=== PATIENT | female | born 1955 ===

== ENCOUNTER 2017-10-15 13:55 | Emergency (ER) | payer OTHER ==
[2017-10-15 13:59] VITALS: TEMP 36.7
[2017-10-15] MEDS ORDERED: OPTIRAY 320 IV PRN (14:30)
[2017-10-15 14:40] LABS: BASO % 0.5 %; BASO ABS # 0.03 K/uL (0-0.2); EOS % 10.5 %; EOS ABS # 0.64 K/uL (0-0.5); HEMATOCRIT 37.5 % (37-47); HEMOGLOBIN 12.9 g/dL (12.0-16.0); IG# 0.02 K/uL (0.00-0.02); LYMPH % 30.1 %; LYMPH ABS # 1.83 K/uL (1.2-3.4); MEAN CELL VOLUME 90.1 fL (80-100); MEAN CORPUSCULAR HGB CONC 34.4 g/dl (32-36); MEAN PLATELET VOLUME 9.4 fL (7.4-10.4); MONO % 3.6 %; MONO ABS # 0.22 K/uL (0.11-0.59); NEUT ABS # 3.33 K/uL (1.4-6.5); PLATELET COUNT 239 K/uL (130-400); RED CELL DISTRIBUTION WIDTH CV 13.1 % (11.5-14.5); RED CELL DISTRIBUTION WIDTH SD 42.6 fL (36.4-46.3); WHITE BLOOD COUNT 6.07 K/uL (4.8-10.8)
[2017-10-15 14:59] LABS: ALBUMIN 3.8 gm/dl (3.4-5.0); ALKALINE PHOSPHATASE 67 U/L (45-117); ALT/SGPT 31 U/L (12-78); AST/SGOT 22 U/L (15-37); BLOOD UREA NITROGEN 12 mg/dl (7-18); CALCIUM 8.9 mg/dl (8.5-10.1); CARBON DIOXIDE 29 mmol/L (21-32); CREATININE 0.82 mg/dl (0.60-1.20); GLUCOSE 144 mg/dl (70-99); LIPASE 150 U/L (73-393); SODIUM 140 mmol/L (136-145); TOTAL PROTEIN 7.9 gm/dl (6.4-8.2)
--- NOTE | 2017-10-15 15:05 | EMERGENCY ROOM VISIT NOTE ---
History Report prepared by Chavze: Nasir Mccarthy Under the Supervision of: Dr. Alli Kessler D.O. First contact with patient: 14:02 Chief Complaint: FALL Stated Complaint: SEVER BACK PAIN, FALL History of Present Illness The patient is a 62 year old female who presents to the Emergency Room with complaints of constant right-sided rib pain beginning two days ago. She currently rates her discomfort an 8/10 in severity. The patient states she fell down 5 steps two days ago when she was in [place]. She reports she fell onto her right side and right buttock. The patient notes she has developed bruises to her right buttock. She states deep breathing, sneezing, laying down, and movement worsens her discomfort. The patient denies middle back pain, headache, neck pain, chest pain, pain in her hip, and trouble walking. She did not hit her head. There is no loss consciousness. Pain is only present with moving twisting turning bending and breathing. Currently she is resting she has 0 pain. No other exacerbating or remitting factors. Source of History: patient Onset: 2 days ago Position: other (right-sided rib) Symptom Intensity: 8/10 Timing: constant Modifying Factors (Worsening): breathing (deep), movement, other (sneezing and laying down) Associated Symptoms: No headache, No neck pain, No chest pain, No back pain Note: Associated symptoms: bruising on her right buttock Denies: hip pain, trouble walking Review of Systems See HPI for pertinent positives & negatives. A total of 10 systems reviewed and were otherwise negative. Past Medical & Surgical Medical Problems: (1) No Known Active Medical Problems Family History Patient reports no known family medical history. Social History Smoking Status: Never Smoker Marital Status: Housing Status: lives with significant other Current/Historical Medications Scheduled PRN Oxycodone Immediate Rel Tab (Roxicodone Ir), 5 MG PO Q6H PRN for Pain Physical Exam Vital Signs Date Time Temp Pulse Resp B/P (MAP) Pulse Ox O2 Delivery O2 Flow Rate FiO2 10/15/17 17:13 62 14 132/69 96 10/15/17 15:46 66 14 151/69 100 Room Air 10/15/17 13:59 36.7 75 16 130/78 100 Room Air Physical Exam GENERAL: Standing up in room, alert, disheveled, no distress, non-toxic HEAD: normal cephalic, atraumatic EYE EXAM: normal conjunctiva, PERRL and EOM's grossly intact OROPHARYNX: no exudate, no erythema, lips, buccal mucosa, and tongue normal and mucous membranes are moist EARS: TMs clear b/l NECK: supple, no nuchal rigidity, no adenopathy, non-tender CHEST: stable to compression anteriorly and posteriorly. Bruising over the right chest wall with tenderness upon palpation. LUNGS: clear to auscultation. Normal chest wall mechanics HEART: no murmurs, S1 normal and S2 normal ABDOMEN: abdomen soft, non-tender, normo-active bowel sounds, no masses, no rebound or guarding. PELVIS: stable to compression anteriorly and posteriorly BACK: Back is symmetrical on inspection and there is no deformity, no midline tenderness, no CVA tenderness. Bruising over the right gluteus. UPPER EXTREMITIES: full active and passive range of motion of all joints without tenderness to palpation LOWER EXTREMITIES: full active and passive range of motion of all joints without tenderness to palpation NEURO EXAM: Normal sensorium, cranial nerves II-XII grossly intact, normal speech, no gross weakness of arms, no gross weakness of legs. GCS: 15. Medical Decision & Procedures ER Provider Diagnostic Interpretation: Radiology results as stated below per my review and the radiologist's interpretation: PELVIS 1 OR 2 VIEW ROUTINE HISTORY: 62 years-old Female fall acute pelvic pain status post fall COMPARISON: Lumbar spine radiographs of same day TECHNIQUE: AP view of the pelvis FINDINGS: Mild degenerative changes about the bilateral femoral acetabular joints. There is no acute fracture, dislocation or opaque foreign body. IMPRESSION: No acute fracture or dislocation. The above report was generated using voice recognition software. It may contain grammatical, syntax or spelling errors. Electronically signed by: James Saravia M.D. 10/15/2017 3:34 PM Dictated Date/Time: 10/15/2017 3:33 PM LUMBAR SPINE 3 VIEWS CLINICAL HISTORY: Fall with low back pain. FINDINGS: AP, lateral, and coned-down views of the lumbar spine are obtained. No prior studies are available for comparison at the time of dictation. The skeletal structures are osteopenic. There is no radiographic evidence of fracture or malalignment involving the lumbar spine. Vertebral body height and alignment are maintained. Small anterior osteophytes are seen throughout. The transverse and spinous processes appear intact. The disc spaces are maintained. Mild facet arthropathy is seen in the lower lumbar region. The bony pelvis appears intact. No bowel obstruction is seen. There is moderate colonic fecal retention. IMPRESSION: 1. There is no radiographic evidence of fracture or malalignment involving the thoracic spine. 2. Osteopenia and mild spondylotic change as above. 3. Moderate constipation. Dictated: 10/15/2017 3:36 PM Transcribed: 10/15/2017 3:42 PM [email or web address] Electronically signed by: Jesu Quan M.D. 10/15/2017 3:59 PM Dictated Date/Time: 10/15/2017 3:36 PM CHEST ONE VIEW PORTABLE HISTORY: 62 years-old Female fall acute chest trauma status post fall COMPARISON: Thoracic spine radiographs of same day TECHNIQUE: PA view of the chest FINDINGS: Cardiomediastinal and hilar silhouettes are within normal limits. There is no pneumothorax, pleural effusion, focal airspace consolidation or overt pulmonary edema. The bones of the chest appear grossly intact. IMPRESSION: No acute process. The above report was generated using voice recognition software. It may contain grammatical, syntax or spelling errors. Electronically signed by: James Saravia M.D. 10/15/2017 3:35 PM Dictated Date/Time: 10/15/2017 3:[address] WITH CONTRAST CT DOSE: 251.82 mGy.cm HISTORY: Acute right-sided chest pain status post trauma fall r chest wall pain TECHNIQUE: Multiaxial CT images of the chest were performed following the intravenous administration of contrast. A dose lowering technique was utilized adhering to the principles of ALARA. COMPARISON: Chest radiograph of same day, thoracic lumbar spine radiographs of same day FINDINGS: No dominant thyroid nodule identified. Heart is normal in size without pericardial effusion. The thoracic aorta is normal in both course and caliber without aneurysm or dissection. Imaged great vessels appear patent. The opacified pulmonary arterial tree is unremarkable. There is no pathologic adenopathy about the chest identified. Mildly prominent precarinal and subcarinal lymph nodes are seen measuring up to 8 mm in short axis, likely reactive. There is no pneumothorax. Linear consolidative opacity of the right lower lobe measures up to 2.6 cm in length, image 148 series 4. 2 mm calcified granuloma of the superior segment right lower lobe. Additional ill-defined linear consolidative opacities noted within the left lower lobe, image 163 series 4 measuring up to 1.9 cm in length. The central airways are patent. Imaged upper abdominal structures demonstrate no acute abnormality. Mild thickening about the left adrenal gland. Soft tissues are within normal limits. Chronic appearing fracture of the left fifth rib laterally. Acute minimally displaced fracture of the posterior right ninth rib. No additional fracture identified. IMPRESSION: 1. Acute minimally displaced fracture of the posterior right ninth rib. No evidence of pneumothorax. 2. Ill-defined groundglass and consolidative opacities about the bilateral lower lobes as above may reflect atelectasis with pulmonary contusion or infectious/inflammatory pneumonitis. Follow-up recommended. 3. Healed remote fracture deformity of the lateral left fifth rib. Electronically signed by: James Saravia M.D. 10/15/2017 3:54 PM Dictated Date/Time: 10/15/2017 3:47 PM THORACIC SPINE 3 VIEWS CLINICAL HISTORY: Fall with thoracic back pain. FINDINGS: AP, lateral, and swimmer's views of the thoracic spine are obtained. No prior studies are available for comparison at the time of dictation. The skeletal structures are osteopenic. There is no radiographic evidence of fracture or malalignment involving the thoracic spine. Tiny anterior osteophytes are seen throughout. Vertebral body height and alignment are maintained. The transverse processes and pedicles are grossly intact as seen on the frontal view. The intervertebral disc spaces appear maintained. The imaged posterior ribs appear intact. The lung parenchyma is clear as visualized. IMPRESSION: There is no radiographic evidence of fracture or malalignment involving the thoracic spine. Electronically signed by: Jesu Quan M.D. 10/15/2017 3:32 PM Dictated Date/Time: 10/15/2017 3:30 PM Laboratory Results 10/15/17 14:30 Red Blood Count 4.16, Mean Corpuscular Volume 90.1, Mean Corpuscular Hemoglobin 31.0, Mean Corpuscular Hemoglobin Concent 34.4, Mean Platelet Volume 9.4, Neutrophils (%) (Auto) 55.0, Lymphocytes (%) (Auto) 30.1, Monocytes (%) (Auto) 3.6, Eosinophils (%) (Auto) 10.5, Basophils (%) (Auto) 0.5, Neutrophils # (Auto ) 3.33, Lymphocytes # (Auto) 1.83, Monocytes # (Auto) 0.22, Eosinophils # (Auto ) 0.64, Basophils # (Auto) 0.03 10/15/17 14:30 Test 10/15/17 14:30 10/15/17 16:35 White Blood Count 6.07 K/uL (4.8-10.8) Red Blood Count 4.16 M/uL (4.2-5.4) Hemoglobin 12.9 g/dL (12.0-16.0) Hematocrit 37.5 % (37-47) Mean Corpuscular Volume 90.1 fL (80-100) Mean Corpuscular Hemoglobin 31.0 pg (25-34) Mean Corpuscular Hemoglobin Concent 34.4 g/dl (32-36) Platelet Count 239 K/uL (130-400) Mean Platelet Volume 9.4 fL (7.4-10.4) Neutrophils (%) (Auto) 55.0 % Lymphocytes (%) (Auto) 30.1 % Monocytes (%) (Auto) 3.6 % Eosinophils (%) (Auto) 10.5 % Basophils (%) (Auto) 0.5 % Neutrophils # (Auto) 3.33 K/uL (1.4-6.5) Lymphocytes # (Auto) 1.83 K/uL (1.2-3.4) Monocytes # (Auto) 0.22 K/uL (0.11-0.59) Eosinophils # (Auto) 0.64 K/uL (0-0.5) Basophils # (Auto) 0.03 K/uL (0-0.2) RDW Standard Deviation 42.6 fL (36.4-46.3) RDW Coefficient of Variation 13.1 % (11.5-14.5) Immature Granulocyte % (Auto) 0.3 % Immature Granulocyte # (Auto) 0.02 K/uL (0.00-0.02) Anion Gap 5.0 mmol/L (3-11) Estimated GFR () 89.5 Estimated GFR (Non- 77.2 BUN/Creatinine Ratio 14.7 (10-20) Calcium Level 8.9 mg/dl (8.5-10.1) Total Bilirubin 0.2 mg/dl (0.2-1) Direct Bilirubin < 0.1 mg/dl (0-0.2) Aspartate Amino Transf (AST/SGOT) 22 U/L (15-37) Alanine Aminotransferase (ALT/SGPT) 31 U/L (12-78) Alkaline Phosphatase 67 U/L (45-117) Total Protein 7.9 gm/dl (6.4-8.2) Albumin 3.8 gm/dl (3.4-5.0) Lipase 150 U/L (73-393) Urine Color YELLOW Urine Appearance CLEAR (CLEAR) Urine pH 6.0 (4.5-7.5) Urine Specific [place] > 1.045 (1.000-1.030) Urine Protein NEG (NEG) Urine Glucose (UA) NEG (NEG) Urine Ketones NEG (NEG) Urine Occult Blood NEG (NEG) Urine Nitrite NEG (NEG) Urine Bilirubin NEG (NEG) Urine Urobilinogen NEG (NEG) Urine Leukocyte Esterase SMALL (NEG) Urine WBC (Auto) 1-5 /hpf (0-5) Urine RBC (Auto) 0-4 /hpf (0-4) Urine Hyaline Casts (Auto) 0 /lpf (0-5) Urine Epithelial Cells (Auto) 5-10 /lpf (0-5) Urine Bacteria (Auto) NEG (NEG) Laboratory results per my review. Medications Administered Medications (Trade) Dose Ordered Sig/Carly Route Start Time Stop Time Status Last Admin Dose Admin Morphine Sulfate (MoRPHine SULFATE INJ) 4 mg NOW STAT IV 10/15/17 16:20 10/15/17 16:21 DC 10/15/17 16:42 4 MG ED Course ED COURSE: Vital signs were reviewed and showed normal vitals. The patients medical record was reviewed The above diagnostic studies were performed and reviewed. ED treatments and interventions as stated above. 1404: The patient was evaluated in room A12B. A complete history and physical examination was performed. 1611: I discussed the patient's case with Dr. Villa, Thoracic Surgeon. He states there is no pulmonary contusion, and the patient should follow-up in his office on Wednesday. 1614: Upon reevaluation, the patient is resting. I discussed my findings with the patient and she understands and agrees with the treatment plan. 1620: Ordered Morphine Sulfate 4mg IV Based on the patients age, coexisting illnesses, exam and lab findings the decision to treat as an outpatient was made. The patient remained stable while under my care. The patient appeared well at the time of discharge. Medical Decision Differential diagnoses include major intracranial, cervical, spinal, thoracic, abdominal, pelvic and neurologic injury. Fracture, contusion, sprain, strain, laceration, abrasions included as well. Patient is a 64-year-old female who presents the ER for mechanical fall which occurred 2 days ago. She was evaluated at an outside hospital in [place]. She presents today as she is having severe persistent pain on her right flank/ribs. No other significant complaints. Labs were obtained and CBC along with BMP, LFTs, bilirubin lipase was fairly unremarkable. X-rays of the lumbar spine pelvis and chest were obtained and were unremarkable for any acute fractures. CT of the chest does show a minimally displaced right ninth rib fracture. No pneumothorax. CT also showed ill-defined groundglass consolidative opacities at bilateral lower lobes. She has no cough runny nose. No shortness of breath. Reviewed by our thoracic surgeon who notes that these are not pulmonary contusions. Updated patient at bedside. They do not want to stay to follow-up on Wednesday as they have a flight tomorrow back to [facility]. They will follow up with her physicians there. Patient was updated at bedside. Discharged with OxyIR. Discussed with Pt concerning signs and symptoms to watch out for. Pt was instructed to follow up with their PCP and discussed with the patient their option to return to the ED at anytime for persistent or worsening symptoms. The appropriate anticipatory guidance and out-patient management, including indications for return to the emergency department, were explained at length to the patient and understood. Head Trauma GCS Score: 15 Medication Reconcilliation Current Medication List: was personally reviewed by me Blood Pressure Screening Patient's blood pressure: Normal blood pressure Blood pressure disposition: Did not require urgent referral Consults Time Called: 1604 Consulting Physician: Dr. Villa, Thoracic Surgeon Returned Call: 1611 I discussed the patient's case with Dr. Villa, Thoracic Surgeon. He states there is no pulmonary contusion, and the patient should follow-up in his office on Wednesday. Impression Primary Impression: Rib fracture Scribe Attestation The scribe's documentation has been prepared under my direction and personally reviewed by me in its entirety. I confirm that the note above accurately reflects all work, treatment, procedures, and medical decision making performed by me. Departure Information Dispostion Home / Self-Care Prescriptions Oxycodone Immediate Rel Tab (ROXICODONE IR) 5 Mg Tab 5 MG PO Q6H Y for Pain, #12 TAB Prov: Alli Kessler, DO 10/15/17 Referrals No Doctor, Assigned (PCP) Forms HOME CARE DOCUMENTATION FORM, IMPORTANT VISIT INFORMATION Patient Instructions Lilli Barnett [facility] Additional Instructions Please follow up with your primary care doctor with in the next 24 hours. Any worsening of your symptoms, please return to the ED immediately. This includes any fevers greater than 100.4, worsening pain, chest pain, shortness breath, persistent nausea, vomiting, unable to eat or drink, or any other concerning signs or symptoms from your standpoint. Your found to have a small right ninth rib fracture. We had a thoracic surgeon look at your images and they did not believe that you had any pulmonary contusions. Please have the consolidative changes followed up on by her primary care doctor. IMPRESSION: 1. Acute minimally displaced fracture of the posterior right ninth rib. No evidence of pneumothorax. 2. Ill-defined groundglass and consolidative opacities about the bilateral lower lobes as above may reflect atelectasis with pulmonary contusion or infectious/inflammatory pneumonitis. Follow-up recommended. 3. Healed remote fracture deformity of the lateral left fifth rib. You were given medications during this visit that will inhibit your ability to drive, operate machinery and work. Please do NOT drive, operate machinery or work for the next 12hrs. You were also given a prescription for a narcotic. While taking this medication you should also not drive, operate machinery and or work. Problem Qualifiers Primary Impression: Rib fracture Encounter type: initial encounter Rib fracture type: single rib Fracture type: closed Laterality: right Qualified Codes: S22.31XA - Fracture of one rib, right side, initial encounter for closed fracture
--- NOTE | 2017-10-15 15:33 | DIAGNOSTIC IMAGING REPORT ---
THORACIC SPINE 3 VIEWS CLINICAL HISTORY: Fall with thoracic back pain. FINDINGS: AP, lateral, and swimmer's views of the thoracic spine are obtained. No prior studies are available for comparison at the time of dictation. The skeletal structures are osteopenic. There is no radiographic evidence of fracture or malalignment involving the thoracic spine. Tiny anterior osteophytes are seen throughout. Vertebral body height and alignment are maintained. The transverse processes and pedicles are grossly intact as seen on the frontal view. The intervertebral disc spaces appear maintained. The imaged posterior ribs appear intact. The lung parenchyma is clear as visualized. IMPRESSION: There is no radiographic evidence of fracture or malalignment involving the thoracic spine. Electronically signed by: Jesu Quan M.D. 10/15/2017 3:32 PM Dictated Date/Time: 10/15/2017 3:30 PM
--- NOTE | 2017-10-15 15:35 | DIAGNOSTIC IMAGING REPORT ---
PELVIS 1 OR 2 VIEW ROUTINE HISTORY: 62 years-old Female fall acute pelvic pain status post fall COMPARISON: Lumbar spine radiographs of same day TECHNIQUE: AP view of the pelvis FINDINGS: Mild degenerative changes about the bilateral femoral acetabular joints. There is no acute fracture, dislocation or opaque foreign body. IMPRESSION: No acute fracture or dislocation. The above report was generated using voice recognition software. It may contain grammatical, syntax or spelling errors. Electronically signed by: James Saravia M.D. 10/15/2017 3:34 PM Dictated Date/Time: 10/15/2017 3:33 PM
--- NOTE | 2017-10-15 15:36 | DIAGNOSTIC IMAGING REPORT ---
CHEST ONE VIEW PORTABLE HISTORY: 62 years-old Female fall acute chest trauma status post fall COMPARISON: Thoracic spine radiographs of same day TECHNIQUE: PA view of the chest FINDINGS: Cardiomediastinal and hilar silhouettes are within normal limits. There is no pneumothorax, pleural effusion, focal airspace consolidation or overt pulmonary edema. The bones of the chest appear grossly intact. IMPRESSION: No acute process. The above report was generated using voice recognition software. It may contain grammatical, syntax or spelling errors. Electronically signed by: James Saravia M.D. 10/15/2017 3:35 PM Dictated Date/Time: 10/15/2017 3:34 PM
--- NOTE | 2017-10-15 15:43 | DIAGNOSTIC IMAGING REPORT ---
LUMBAR SPINE 3 VIEWS CLINICAL HISTORY: Fall with low back pain. FINDINGS: AP, lateral, and coned-down views of the lumbar spine are obtained. No prior studies are available for comparison at the time of dictation. The skeletal structures are osteopenic. There is no radiographic evidence of fracture or malalignment involving the lumbar spine. Vertebral body height and alignment are maintained. Small anterior osteophytes are seen throughout. The transverse and spinous processes appear intact. The disc spaces are maintained. Mild facet arthropathy is seen in the lower lumbar region. The bony pelvis appears intact. No bowel obstruction is seen. There is moderate colonic fecal retention. IMPRESSION: 1. There is no radiographic evidence of fracture or malalignment involving the thoracic spine. 2. Osteopenia and mild spondylotic change as above. 3. Moderate constipation. Dictated: 10/15/2017 3:36 PM Transcribed: 10/15/2017 3:42 PM [email or web address] Electronically signed by: Jesu Quan M.D. 10/15/2017 3:59 PM Dictated Date/Time: 10/15/2017 3:36 PM
--- NOTE | 2017-10-15 15:55 | DIAGNOSTIC IMAGING REPORT ---
CHEST CT WITH CONTRAST CT DOSE: 251.82 mGy.cm HISTORY: Acute right-sided chest pain status post trauma fall r chest wall pain TECHNIQUE: Multiaxial CT images of the chest were performed following the intravenous administration of contrast. A dose lowering technique was utilized adhering to the principles of ALARA. COMPARISON: Chest radiograph of same day, thoracic lumbar spine radiographs of same day FINDINGS: No dominant thyroid nodule identified. Heart is normal in size without pericardial effusion. The thoracic aorta is normal in both course and caliber without aneurysm or dissection. Imaged great vessels appear patent. The opacified pulmonary arterial tree is unremarkable. There is no pathologic adenopathy about the chest identified. Mildly prominent precarinal and subcarinal lymph nodes are seen measuring up to 8 mm in short axis, likely reactive. There is no pneumothorax. Linear consolidative opacity of the right lower lobe measures up to 2.6 cm in length, image 148 series 4. 2 mm calcified granuloma of the superior segment right lower lobe. Additional ill-defined linear consolidative opacities noted within the left lower lobe, image 163 series 4 measuring up to 1.9 cm in length. The central airways are patent. Imaged upper abdominal structures demonstrate no acute abnormality. Mild thickening about the left adrenal gland. Soft tissues are within normal limits. Chronic appearing fracture of the left fifth rib laterally. Acute minimally displaced fracture of the posterior right ninth rib. No additional fracture identified. IMPRESSION: 1. Acute minimally displaced fracture of the posterior right ninth rib. No evidence of pneumothorax. 2. Ill-defined groundglass and consolidative opacities about the bilateral lower lobes as above may reflect atelectasis with pulmonary contusion or infectious/inflammatory pneumonitis. Follow-up recommended. 3. Healed remote fracture deformity of the lateral left fifth rib. Electronically signed by: James Saravia M.D. 10/15/2017 3:54 PM Dictated Date/Time: 10/15/2017 3:47 PM
[2017-10-15] MEDS ORDERED: MoRPHine SULFATE 4 MG/ML 1 ML CARP\\VIAL IV STA (16:20)
[2017-10-15] MEDS ORDERED: OXYC1TAB3 PO (16:26)
[2017-10-15 17:13] VITALS: BP 132/69; PULSE 62; O2SAT 96
== END 2017-10-15 17:13 | disposition home or self-care (01) ==
LOC: C.EDB 13:57 → C.EDA 17:13
DX: S22.31XA Fracture of one rib, right side, initial encounter for closed fracture (principal); W10.9XXA Fall (on) (from) unspecified stairs and steps, initial encounter; Y92.89 Other specified places as the place of occurrence of the external cause